=== PATIENT | male | born 1950 | race African-American/Black ===

== ENCOUNTER 2017-04-13 10:01 | Emergency (ER) | payer MEDICARE, BC ==
[~2017-04-13 10:01] MED LIST: *UNABLE3; APRES10B PO; ASAB PO; COLCH6 PO; COREG25 PO; DAYQUIL PO; DIGITEK0.25 MG PO; FORTAMET1000 MG PO; KDUR20 PO; L40 PO; LAN25 PO; LEVEMFLXPN SC; LEVEMIR; LEVEMIR SC; LOFIBRA54 MG PO; NORCO1 TAB PO; NOVOLOG SC; NOVOPEN SC; NYQUIL PO; PRIN10 PO; PRIN20 PO; PRIN5 PO; VITAMIN B-121000 MC1 SL; Z300 PO; ZANTAC 150 PO; ZANTAC150 MG PO
[2017-04-13 12:37] LABS: BASOPHILS 0.2 %; BASOPHILS ABSOLUTE 0.01 10/3/uL (0.0-0.16); EOSINOPHILS 5.1 %; EOSINOPHILS ABSOLUTE 0.24 10/3/uL (0.0-0.53); ER CBC TAT 0 Hrs 07 Mins; HEMATOCRIT 42.7 % (40.0-51.0); IMMATURE GRANULOCYTES 0.2 %; IMMATURE GRANULOCYTES ABSOLUTE 0.01 10/3/uL (0.0-0.11); LYMPHOCYTES 23.7 %; LYMPHOCYTES ABSOLUTE 1.11 10/3/uL (0.67-4.30); MEAN CORPUS HGB CONC 32.8 g/dL (32.0-36.0); MEAN CORPUSCULAR HEMOGLOB 28.8 pg (26.0-34.0); MEAN CORPUSCULAR VOLUME 87.9 fL (80-100); MEAN PLATELET VOLUME 12.9 fL (9.2-13.0); MONOCYTES 9.4 %; MONOCYTES ABSOLUTE 0.44 10/3/uL (0.21-1.20); NEUTROPHILS 61.4 %; NEUTROPHILS ABSOLUTE 2.87 10/3/uL (2.02-8.40); PLATELET COUNT 179 10/3/uL (150-400); RBC DISTRIBUTION WIDTH 15.2 % (12.0-16.0); RED CELL COUNT 4.86 10/6/uL (4.7-6.1); WHITE BLOOD CELLS 4.7 10/3/uL (4.5-10.5)
[2017-04-13 12:40] LABS: MANUAL DIFF NO %
[2017-04-13 12:52] LABS: A/G RATIO 1.1 (0.7-1.9); ALBUMIN 3.8 G/DL (3.5-5.0); ALKALINE PHOSPHATASE 98 U/L (45-117); BUN (BLOOD UREA NITROGEN) 12 MG/DL (6-23); CALCIUM, SERUM 8.5 MG/DL (8.5-10.4); CHLORIDE, SERUM 104 MMOL/L (96-112); CO2 (CARBON DIOXIDE) 35 MMOL/L (24-34); CREATININE 0.94 MG/DL (0.70-1.30); GFR AFRICAN AMERICAN 98 ML/MIN (>=60); GFR NON AFRICAN AMERICAN 84 ML/MIN (>=60); GLOBULIN 3.5 G/DL (2.5-4.1); GLUCOSE, SERUM 74 MG/DL (60-99); POTASSIUM, SERUM 3.8 MMOL/L (3.5-5.3); SGOT(AST) 17 U/L (5-40); SGPT(ALT) 24 U/L (5-65); SODIUM, SERUM 143 MMOL/L (135-148); TOTAL BILIRUBIN 1.4 MG/DL (0-1.2); TOTAL PROTEIN 7.3 G/DL (6.0-8.5)
== END 2017-04-13 13:30 | disposition home or self-care (01) ==
LOC: ER 10:01
PROVIDERS: Physician Assistant
DX: J06.9 Acute upper respiratory infection, unspecified (principal); I13.0 Hypertensive heart and chronic kidney disease with heart failure and stage 1 through stage 4 chronic kidney disease, or unspecified chronic kidney disease; I50.9 Heart failure, unspecified; N18.9 Chronic kidney disease, unspecified; E11.9 Type 2 diabetes mellitus without complications; E66.01 Morbid (severe) obesity due to excess calories; Z88.8 Allergy status to other drugs, medicaments and biological substances; Z79.4 Long term (current) use of insulin; Z79.82 Long term (current) use of aspirin; Z79.899 Other long term (current) drug therapy
CPT/HCPCS: 71020; 80053; 82962; 85025; 99284

== ENCOUNTER 2017-04-25 22:41 | Inpatient (IN) | payer MEDICARE, BC ==
--- NOTE | ~2017-04-25 | HP ---
History And Physical [place] [facility] [place]. [address] NAME: IRISH GRANDE : 50 STATUS : ADM IN [facility]#: [id number] AGE: 66 ADM/REG DATE : 04/26/17 MR#: [id number] REPORT SERV DATE: 04/26/17 DICTATED BY: NATTY ROQUE DATE: 04/26/17 REPORT STATUS : Draft TRANSCRIBED BY: MODL DATE: 04/26/17 DATE OF ADMISSION: 04/26/2017 CHIEF COMPLAINT: A 66-year-old male presenting with volume overload, shortness of breath. HISTORY OF PRESENT ILLNESS: The patient's history was obtained through an interview with the patient, coupled with review of [facility] and [facility] medical records. For about two weeks now, the patient has noticed increasing mild lymphedema, abdominal distention, and shortness of breath. He describes his shortness of breath as paroxysmal nocturnal dyspnea, dyspnea on exertion, and orthopnea and a feeling as if he has fluid accumulating within his lungs. He denies any chest pain. No abdominal pain. No headache. No leg pain. No pain complaints at all. He has a mild nonproductive cough. He has had nausea, but no vomiting. He feels queasy and "full" in his upper abdomen. No lightheadedness. No fevers or chills. He claims his diabetes has been under good control. REVIEW OF SYSTEMS: Otherwise, a 14-point review of systems was obtained and was negative. PAST MEDICAL HISTORY: 1. Systolic congestive heart failure with ejection fraction 25% to 30% in 2013. 2. Obstructive sleep apnea, on CPAP. 3. AICD/pacer under the care of Dr. Roper. 4. Diabetes. 5. Gout. 6. B12 deficiency. PAST SURGICAL HISTORY: Pacer/AICD placement. ALLERGIES: TO HYDROCHLOROTHIAZIDE AND HYZAAR. SOCIAL HISTORY: Quit smoking remotely. No alcohol abuse. He is . in good health. He used to work for the [employer]. He has six children, 13 grandchildren, and five great-grandchildren. FAMILY HISTORY: Diabetes. CURRENT MEDICATIONS: Include allopurinol 300 mg p.o. b.i.d., aspirin 81 mg p.o. daily, Coreg 25 mg p.o. b.i.d., Zetia 5 mg p.o. daily, Lasix 40 mg p.o. daily, NovoLog sliding scale, History And Physical [address] [address] NAME: IRISH GRANDE : 50 STATUS : ADM IN PAT#: [id number] AGE: 66 ADM/REG DATE : 04/26/17 MR#: [id number] REPORT SERV DATE: 04/26/17 DICTATED BY: NATTY ROQUE DATE: 04/26/17 REPORT STATUS : Draft TRANSCRIBED BY: FAVIO DATE: 04/26/17 Levemir 60 units subcutaneous twice a day, lisinopril 40 mg p.o. daily, Zantac 150 mg p.o. b.i.d., and sotalol 80 mg p.o. b.i.d. PHYSICAL EXAMINATION: VITAL SIGNS: Temperature 98.6, pulse 99, blood pressure 210/103, respiratory rate 16, and O2 saturation 87% on room air. GENERAL: A pleasant, cooperative male, but in evidence of distress secondary to shortness of breath HEENT: Pupils are equal, round, and reactive to light. No conjunctival pallor. No scleral icterus. Nares are patent. Oropharynx is clear of obstruction. Moist mucous membranes. NECK: Trachea midline. No thyromegaly. LYMPH: No cervical lymphadenopathy. No supraclavicular lymphadenopathy. RESPIRATORY: The patient has wet rales at the base of lungs. No wheezes, no rhonchi. A labored respiratory effort is noted. CARDIOVASCULAR: Regular rate and rhythm. Paced on the monitor. No murmurs, rubs, or gallops. The patient has pitting edema around the ankles and shins symmetrically but not too deep. ABDOMEN: Seems distended. No tympanic resonance on percussion. Tender throughout but nonfocal. No guarding. No rebound. No hepatosplenomegaly. DERMATOLOGICAL: Warm and dry extremities. No pallor, no cyanosis. PSYCHIATRIC: Normal affect. Good mood. Alert and oriented x3. LABORATORY DATA: ABG demonstrates a pH 7.42, a PaCO2 of 52, a PaO2 of 55, bicarb of 33 on room air. White blood cell count 5.4, hemoglobin 14, hematocrit 43, platelets 162. Sodium 141, potassium 4.1, chloride 104, bicarb 33, BUN 13, creatinine 1.0, glucose 225, brain natriuretic peptide 235, and troponin 0.02. STUDIES: 1. Chest x-ray by my own evaluation shows cardiomegaly, congestive changes. 2. EKG by my own evaluation shows ventricular pacing. ASSESSMENT AND PLAN: 1. Hypoxic respiratory failure. Provide supportive care. 2. Systolic congestive heart failure exacerbation with ejection fraction 25% to 30%. Recheck an echocardiogram. Place on IV diuretic, nitroglycerin paste, THI inhibitor, beta piedad. 3. Obstructive sleep apnea, place on CPAP. 4. AICD/pacer placement. We will interrogate pacer. 5. Diabetes. Check hemoglobin A1c. Place on sliding scale insulin. KPTod/FAVIO Natty Roque M.D. History And Physical [address] [address] NAME: IRISH GRANDE : 50 STATUS : ADM IN PAT#: [id number] AGE: 66 ADM/REG DATE : 04/26/17 MR#: [id number] REPORT SERV DATE: 04/26/17 DICTATED BY: NATTY ROQUE DATE: 04/26/17 REPORT STATUS : Draft TRANSCRIBED BY: FAVIO DATE: 04/26/17 / [id number] CC: MD Godfrey Roger M.D.
--- NOTE | ~2017-04-25 | DS ---
Discharge Summary [facility] [address] [place]. [address] NAME: IRISH ALBERT : 50 STATUS : DIS IN PAT#: [id number] AGE: 66 ADM/REG DATE : 04/26/17 MR#: [id number] REPORT SERV DATE: 04/29/17 DICTATED BY: GEMINI BECKER DATE: 04/28/17 REPORT STATUS : Draft TRANSCRIBED BY: MODL DATE: 04/28/17 ADMISSION DATE: 04/26/2017 DISCHARGE DATE: 04/28/2017 Mr. Albert is a 66-year-old male with a history of heart failure with reduced EF, diabetes type 2, and hypertension, who presented to the hospital with volume overload and shortness of breath. For further details, please refer to H and P dictated by Dr. Rashard Anaya on 04/26/2017. HOSPITAL COURSE: Upon presentation to the hospital, the patient was diagnosed with decompensated heart failure, was admitted under Hospitalist Service for further management. The patient was started on IV diuretics with appropriate response. Given his presenting symptoms, a transthoracic echocardiogram was ordered to evaluate his cardiac status. His EF on repeat echocardiogram was noted to be at 20%. Per guidelines, the patient was started on spironolactone and BiDil. He remained hemodynamically stable with resolution of his complaints. Given resolution of his presenting symptoms, the patient will subsequently be discharged home today. His other medical problems were also managed while in-house including diabetes and hypertension. DISCHARGE DIAGNOSES: 1. Heart failure with reduced ejection fraction. 2. Diabetes type 2. 3. Hypertension. 4. Obstructive sleep apnea. 5. Morbid obesity. DISCHARGE EXAMINATION: VITAL SIGNS: Blood pressure 131/71 with a pulse of 70, respirations 16, O2 sat 95% on 2 L nasal cannula. GENERAL: The patient is sitting in chair, appears stated age, morbidly obese, in no acute distress. HEENT: Normocephalic and atraumatic. Extraocular motors intact. Moist oral mucosa. NECK: Trachea midline and symmetric. The patient morbidly obese with a full neck and did not appreciate any JVD. CHEST: Nontender to palpation. No scars noted. CARDIOVASCULAR: Regular rate and rhythm. S1, S2. No murmurs, rubs, or gallops. LUNGS: Clear to auscultation bilaterally. No added breath sounds; however, of note, cardiac and lung sounds were decreased secondary to body habitus. ABDOMEN: Obese, protuberant. Positive bowel sounds. Nontender. Nondistended. EXTREMITIES: No cyanosis. No clubbing. No edema. NEUROLOGIC: Alert and oriented x3. No focal deficits appreciated. DISCHARGE MEDICATIONS: 1. Allopurinol 300 mg p.o. twice a day. 2. Aspirin 81 mg p.o. daily. 3. Carvedilol 25 mg p.o. twice a day. 4. Zetia 5 mg p.o. every morning. Discharge Summary [address] [place]. [address] NAME: IRISH ALBERT : 50 STATUS : DIS IN PAT#: [id number] AGE: 66 ADM/REG DATE : 04/26/17 MR#: [id number] REPORT SERV DATE: 04/29/17 DICTATED BY: GEMINI BECKER DATE: 04/28/17 REPORT STATUS : Draft TRANSCRIBED BY: FAVIO DATE: 04/28/17 5. Ranitidine 150 mg p.o. twice a day. 6. Lasix 40 mg p.o. twice a day. 7. Insulin Levemir 60 units subcutaneous twice a day. 8. Insulin NovoLog sliding scale. 9. Lisinopril 40 mg p.o. daily. 10.Sotalol 80 mg p.o. twice a day. 11.Spironolactone 75 mg p.o. daily. 12.BiDil 20/3, 7.5 tablet, take one tablet p.o. three times daily. IMAGING: Chest x-ray, PA and lateral. Impression: Mild volume overload and CHF pattern increased from 04/13/2017. Transthoracic echocardiogram, EF 20%, please refer to echocardiogram on 04/27/2017. DISPOSITION: The patient will be discharged home. ACTIVITY: As tolerated. DIET: Low-salt diabetic diet. DISCHARGE INSTRUCTIONS: The patient to follow up with primary care physician in five to seven days. The patient is to follow up with Cardiology, Dr. Roper in two weeks. Plan has been explained to the patient who voices understanding and is agreeable with this plan. Greater than 30 minutes was spent coordinating care, planning discharge, dictation of note, medication reconciliation, writing prescription, and providing counseling. DICTATED BY: MD DEJON Roger/FAVIO Gemini Becker MD / [id number] CC: MD Godfrey Roger M.D.
[2017-04-25 19:17] LABS: BASOPHILS 0.2 %; BASOPHILS ABSOLUTE 0.01 10/3/uL (0.0-0.16); EOSINOPHILS 4.1 %; EOSINOPHILS ABSOLUTE 0.22 10/3/uL (0.0-0.53); ER CBC TAT 0 Hrs 05 Mins; HEMATOCRIT 43.4 % (40.0-51.0); HEMOGLOBIN 14.2 g/dL (13.6-17.8); IMMATURE GRANULOCYTES 0.2 %; IMMATURE GRANULOCYTES ABSOLUTE 0.01 10/3/uL (0.0-0.11); LYMPHOCYTES ABSOLUTE 1.23 10/3/uL (0.67-4.30); MEAN CORPUS HGB CONC 32.7 g/dL (32.0-36.0); MEAN CORPUSCULAR HEMOGLOB 29.2 pg (26.0-34.0); MEAN CORPUSCULAR VOLUME 89.1 fL (80-100); MEAN PLATELET VOLUME 11.7 fL (9.2-13.0); MONOCYTES 6.7 %; MONOCYTES ABSOLUTE 0.36 10/3/uL (0.21-1.20); NEUTROPHILS 65.8 %; NEUTROPHILS ABSOLUTE 3.52 10/3/uL (2.02-8.40); PLATELET COUNT 162 10/3/uL (150-400); RBC DISTRIBUTION WIDTH 15.9 % (12.0-16.0); RED CELL COUNT 4.87 10/6/uL (4.7-6.1); WHITE BLOOD CELLS 5.4 10/3/uL (4.5-10.5)
[2017-04-25 19:18] LABS: MANUAL DIFF NO %
[2017-04-25 19:25] LABS: PARTIAL THROMBO TIME 26.1 SEC (22.5-37.2); PROTIME (NOT ORD) 12.6 SEC (12.0-14.5)
[2017-04-25 19:37] LABS: BUN (BLOOD UREA NITROGEN) 13 MG/DL (6-23); CALCIUM, SERUM 8.7 MG/DL (8.5-10.4); CHEST PAIN PROFILE TAT 0 Hrs 25 Mins; CHLORIDE, SERUM 104 MMOL/L (96-112); CO2 (CARBON DIOXIDE) 33 MMOL/L (24-34); GFR AFRICAN AMERICAN 90 ML/MIN (>=60); GFR NON AFRICAN AMERICAN 78 ML/MIN (>=60); GLUCOSE, SERUM 225 MG/DL (60-99); POTASSIUM, SERUM 4.1 MMOL/L (3.5-5.3); SODIUM, SERUM 141 MMOL/L (135-148); TROPONIN I 0.02 NG/ML (<0.05)
[2017-04-26] MEDS ORDERED: BETAPACE80 PO (00:56)
[2017-04-26] MEDS ORDERED: COREG25 PO (00:56)
[2017-04-26] MEDS ORDERED: L40 PO (00:57)
[2017-04-26] MEDS ORDERED: LEVEMFLXPN SC (00:57)
[2017-04-26] MEDS ORDERED: Z300 PO (00:57)
[2017-04-26] MEDS ORDERED: LISINOPRIL40 MG PO (00:58)
[2017-04-26] MEDS ORDERED: NOVOPEN SC (00:58)
[2017-04-26] MEDS ORDERED: ZETIA PO (00:58)
[2017-04-26] MEDS ORDERED: ASAB PO (01:00)
[2017-04-26] MEDS ORDERED: ZANTAC 150 PO (01:00)
[2017-04-26 04:17] LABS: BE (BASE EXCESS) 6.5 MEQ/L (0 +/- 2.5); CARBOXYHEMOGLOBIN 2.3 % (0-3); HCO3 (ACTUAL BICARBONATE) 32.6 MEQ/L (23-27); HEMOBLOGIN CONTENT 14.9 G/DL (14-18); INSTRUMENT SERIAL # 8087; METHEMOGLOBIN 0.3 % (0-3); O2 CONTENT 17.8 VOL% (18-24); PCO2 (CO2 TENSION) 52 MMHG (35-45); PO2 (O2 TENSION) 55 MMHG (79-93); pH 7.42 (7.37-7.43)
[2017-04-26 04:18] LABS: ALLENS TEST Pos; OPERATOR ID 33449; SAMPLE Arterial
[2017-04-26 08:37] LABS: BASOPHILS 0.2 %; BASOPHILS ABSOLUTE 0.01 10/3/uL (0.0-0.16); EOSINOPHILS 1.8 %; EOSINOPHILS ABSOLUTE 0.11 10/3/uL (0.0-0.53); HEMATOCRIT 45.1 % (40.0-51.0); HEMOGLOBIN 14.6 g/dL (13.6-17.8); IMMATURE GRANULOCYTES 0.3 %; IMMATURE GRANULOCYTES ABSOLUTE 0.02 10/3/uL (0.0-0.11); LYMPHOCYTES 11.4 %; LYMPHOCYTES ABSOLUTE 0.69 10/3/uL (0.67-4.30); MEAN CORPUS HGB CONC 32.4 g/dL (32.0-36.0); MEAN CORPUSCULAR HEMOGLOB 28.9 pg (26.0-34.0); MEAN CORPUSCULAR VOLUME 89.3 fL (80-100); MEAN PLATELET VOLUME 11.5 fL (9.2-13.0); MONOCYTES 7.1 %; MONOCYTES ABSOLUTE 0.43 10/3/uL (0.21-1.20); NEUTROPHILS 79.2 %; NEUTROPHILS ABSOLUTE 4.77 10/3/uL (2.02-8.40); PLATELET COUNT 161 10/3/uL (150-400); RBC DISTRIBUTION WIDTH 15.9 % (12.0-16.0); RED CELL COUNT 5.05 10/6/uL (4.7-6.1)
[2017-04-26 08:42] LABS: MANUAL DIFF NO %
[2017-04-26 08:45] LABS: PARTIAL THROMBO TIME 26.8 SEC (22.5-37.2); PROTIME (NOT ORD) 13.4 SEC (12.0-14.5)
[2017-04-26 08:55] LABS: B NATRIURETIC PEPTIDE (BNP) 235.3 PG/ML (< 100.0)
[2017-04-26 08:59] LABS: A/G RATIO 1.1 (0.7-1.9); ALBUMIN 3.9 G/DL (3.5-5.0); ALKALINE PHOSPHATASE 95 U/L (45-117); BUN (BLOOD UREA NITROGEN) 13 MG/DL (6-23); CHLORIDE, SERUM 100 MMOL/L (96-112); CO2 (CARBON DIOXIDE) 37 MMOL/L (24-34); CREATININE 0.93 MG/DL (0.70-1.30); GFR AFRICAN AMERICAN 99 ML/MIN (>=60); GFR NON AFRICAN AMERICAN 85 ML/MIN (>=60); GLOBULIN 3.7 G/DL (2.5-4.1); GLUCOSE, SERUM 190 MG/DL (60-99); PHOSPHORUS, SERUM 3.4 MG/DL (2.5-4.5); SGOT(AST) 16 U/L (5-40); SGPT(ALT) 21 U/L (5-65); SODIUM, SERUM 141 MMOL/L (135-148); TOTAL PROTEIN 7.6 G/DL (6.0-8.5); TROPONIN I <0.02 NG/ML (<0.05)
[2017-04-26 13:58] LABS: GLYCOHEMOGLOBIN (HbA1c) 7.1 % (4.7-6.1)
[2017-04-27 04:35] LABS: BASOPHILS 0.2 %; BASOPHILS ABSOLUTE 0.01 10/3/uL (0.0-0.16); EOSINOPHILS 3.3 %; HEMATOCRIT 45.8 % (40.0-51.0); IMMATURE GRANULOCYTES 0.3 %; IMMATURE GRANULOCYTES ABSOLUTE 0.02 10/3/uL (0.0-0.11); LYMPHOCYTES 16.5 %; MEAN CORPUS HGB CONC 32.8 g/dL (32.0-36.0); MEAN CORPUSCULAR HEMOGLOB 29.4 pg (26.0-34.0); MEAN CORPUSCULAR VOLUME 89.8 fL (80-100); MEAN PLATELET VOLUME 11.8 fL (9.2-13.0); MONOCYTES 7.4 %; MONOCYTES ABSOLUTE 0.45 10/3/uL (0.21-1.20); NEUTROPHILS 72.3 %; NEUTROPHILS ABSOLUTE 4.37 10/3/uL (2.02-8.40); PLATELET COUNT 167 10/3/uL (150-400); RBC DISTRIBUTION WIDTH 15.8 % (12.0-16.0); WHITE BLOOD CELLS 6.1 10/3/uL (4.5-10.5)
[2017-04-27 04:38] LABS: MANUAL DIFF NO %
[2017-04-27 06:14] LABS: ALBUMIN 3.8 G/DL (3.5-5.0); ALKALINE PHOSPHATASE 95 U/L (45-117); BUN (BLOOD UREA NITROGEN) 19 MG/DL (6-23); CHLORIDE, SERUM 100 MMOL/L (96-112); CO2 (CARBON DIOXIDE) 33 MMOL/L (24-34); CREATININE 1.14 MG/DL (0.70-1.30); GFR AFRICAN AMERICAN 77 ML/MIN (>=60); GFR NON AFRICAN AMERICAN 67 ML/MIN (>=60); GLOBULIN 3.7 G/DL (2.5-4.1); GLUCOSE, SERUM 132 MG/DL (60-99); SGOT(AST) 23 U/L (5-40); SGPT(ALT) 26 U/L (5-65); SODIUM, SERUM 140 MMOL/L (135-148); TOTAL BILIRUBIN 0.8 MG/DL (0-1.2); TOTAL PROTEIN 7.5 G/DL (6.0-8.5)
[2017-04-28 04:31] LABS: BASOPHILS 0.2 %; BASOPHILS ABSOLUTE 0.01 10/3/uL (0.0-0.16); EOSINOPHILS 2.5 %; EOSINOPHILS ABSOLUTE 0.15 10/3/uL (0.0-0.53); HEMATOCRIT 44.9 % (40.0-51.0); HEMOGLOBIN 14.6 g/dL (13.6-17.8); IMMATURE GRANULOCYTES 0.2 %; IMMATURE GRANULOCYTES ABSOLUTE 0.01 10/3/uL (0.0-0.11); LYMPHOCYTES 20.5 %; LYMPHOCYTES ABSOLUTE 1.23 10/3/uL (0.67-4.30); MEAN CORPUS HGB CONC 32.5 g/dL (32.0-36.0); MEAN CORPUSCULAR HEMOGLOB 29.1 pg (26.0-34.0); MEAN CORPUSCULAR VOLUME 89.4 fL (80-100); MONOCYTES 9.2 %; MONOCYTES ABSOLUTE 0.55 10/3/uL (0.21-1.20); NEUTROPHILS 67.4 %; NEUTROPHILS ABSOLUTE 4.06 10/3/uL (2.02-8.40); PLATELET COUNT 179 10/3/uL (150-400); RBC DISTRIBUTION WIDTH 15.7 % (12.0-16.0); RED CELL COUNT 5.02 10/6/uL (4.7-6.1)
[2017-04-28 04:34] LABS: MANUAL DIFF NO %
[2017-04-28 04:47] LABS: ALBUMIN 3.5 G/DL (3.5-5.0); ALKALINE PHOSPHATASE 87 U/L (45-117); CALCIUM, SERUM 8.6 MG/DL (8.5-10.4); CHLORIDE, SERUM 103 MMOL/L (96-112); CO2 (CARBON DIOXIDE) 34 MMOL/L (24-34); CREATININE 1.05 MG/DL (0.70-1.30); GFR AFRICAN AMERICAN 85 ML/MIN (>=60); GFR NON AFRICAN AMERICAN 74 ML/MIN (>=60); GLOBULIN 3.5 G/DL (2.5-4.1); GLUCOSE, SERUM 115 MG/DL (60-99); POTASSIUM, SERUM 3.9 MMOL/L (3.5-5.3); SGOT(AST) 16 U/L (5-40); SGPT(ALT) 17 U/L (5-65); SODIUM, SERUM 142 MMOL/L (135-148); TOTAL BILIRUBIN 0.8 MG/DL (0-1.2)
[2017-04-28 04:53] LABS: BUN (BLOOD UREA NITROGEN) 24 MG/DL (6-23)
[2017-04-28] MEDS ORDERED: SPIRO25 PO (11:43)
[2017-04-28] MEDS ORDERED: BIDIL20/37 PO (11:44)
== END 2017-04-28 12:08 | disposition home or self-care (01) | DRG 291 ==
LOC: ER 22:41 → 5NO 04-26 00:48
PROVIDERS: Emergency Medicine; Hospitalist
DX: I11.0 Hypertensive heart disease with heart failure (principal); J96.01 Acute respiratory failure with hypoxia; Z68.42 Body mass index [BMI] 45.0-49.9, adult; I50.23 Acute on chronic systolic (congestive) heart failure; Z95.810 Presence of automatic (implantable) cardiac defibrillator; E11.9 Type 2 diabetes mellitus without complications; Z87.891 Personal history of nicotine dependence; G47.33 Obstructive sleep apnea (adult) (pediatric); Z99.81 Dependence on supplemental oxygen; E66.01 Morbid (severe) obesity due to excess calories; Z79.4 Long term (current) use of insulin
CPT/HCPCS: 36600; 71010; 71020; 80048; 80053; 82805; 82962; 83036; 83735; 83880; 84100; 84443; 84484; 85025; 85610; 85730; 93005; 93288; 94660; 96374; 99284; A9270-GY; C8929; J1940; Q9957